=== PATIENT | male | born 1950 | race Hispanic/Latino ===

== ENCOUNTER → 2017-03-14 | Outpatient (CLI) | payer MEDICARE | END | disposition home or self-care (01) | LOC: RAH 10:00 | PROVIDERS: ATTEND Nurse Practitioner Family | DX: H91.90 Unspecified hearing loss, unspecified ear (principal) | CPT/HCPCS: 70450 ==

== ENCOUNTER → 2017-10-24 | Outpatient (CLI) | payer MEDICARE ==
[~2017-10-24] VITALS: Ht 177.8 cm; Wt 113.4 kg
[~2017-10-24] MED LIST: REGADENOSON 0.4 MG/5 ML PF SYG IVP SCH
== END | disposition home or self-care (01) ==
LOC: SHCH 07:43
PROVIDERS: ATTEND Internal Medicine Cardiovascular Disease
DX: I25.10 Atherosclerotic heart disease of native coronary artery without angina pectoris (principal); R06.00 Dyspnea, unspecified
CPT/HCPCS: 78452; 93017; 96374; A9500 ×2; J2785

== ENCOUNTER 2021-11-02 10:57 | Emergency (ER) | payer MEDICARE ==
[~2021-11-02 10:57] MED LIST changes: +AMOX1TAB16 PO; +MECL-160 PO; +ONDA4TAB10 PO; -REGADENOSON 0.4 MG/5 ML PF SYG IVP SCH
[2021-11-02] MEDS ORDERED: 0.9% NACL 500ML IV.SOLN 500 ML IV ONE (11:30)
[2021-11-02] MEDS ORDERED: ORPHENADRINE CITRATE 30 MG/ML ML IVP ONE (11:30)
[2021-11-02] MEDS ORDERED: KETOROLAC 15MG/ML VIAL (15MG/ML) IV ONE (11:30)
[2021-11-02] MEDS ORDERED: ACET-66 PO (12:46)
[2021-11-02] MEDS ORDERED: TRAM50TA4 PO (12:46)
[2021-11-02 13:06] VITALS: BP 152/78
== END 2021-11-02 13:19 | disposition home or self-care (01) ==
LOC: EDH 10:57
DX: M54.50 Low back pain, unspecified (principal); E11.9 Type 2 diabetes mellitus without complications; I10 Essential (primary) hypertension; Z79.899 Other long term (current) drug therapy; Z98.890 Other specified postprocedural states
CPT/HCPCS: 99284; 96374; 72131; 96375; J7040; J1885; J2360

== ENCOUNTER 2022-08-29 13:56 | Emergency (ER) | payer MEDICARE ==
[~2022-08-29] VITALS: Ht 177.8 cm; Wt 113.4 kg
[~2022-08-29 13:56] MED LIST changes: +ACET-66 PO; +TRAM50TA4 PO
[2022-08-29 14:07] VITALS: BP 146/86; PULSE 84; RESP 16
[2022-08-29 14:25] LABS: BASOPHILS # (AUTO) 0.07 K/uL (0.00-0.20); BASOPHILS % (AUTO) 0.7 % (0.0-5.0); EOSINOPHILS # (AUTO) 0.33 K/uL (0.00-0.70); EOSINOPHILS % (AUTO) 3.5 % (0.0-8.0); IMMATURE GRANULOCYTE ABSOLUTE 0.03 K/uL (0-1); LYMPHOCYTES # (AUTO) 1.9 K/uL (1.0-4.8); LYMPHOCYTES % (AUTO) 20.3 % (21.0-51.0); MEAN CORPUSCULAR HEMOGLOBIN 26.8 pg (27.0-33.0); MEAN CORPUSCULAR VOLUME 83.9 fL (79-99); MONOCYTES # (AUTO) 0.6 K/uL (0.1-1.0); MONOCYTES % (AUTO) 6.7 % (3.0-13.0); NEUTROPHILS # (AUTO) 6.4 K/uL (1.8-7.7); NEUTROPHILS % (AUTO) 68.5 % (40.0-77.0); PLATELET COUNT (AUTO) 283 K/uL (130-400); RED BLOOD CELL COUNT(AUTO) 5.48 MIL/uL (4.50-6.20); RED CELL DISTRIBUTION WIDTH 13.2 % (11.0-15.5); WHITE BLOOD COUNT (AUTO) 9.4 K/uL (4.8-10.8)
[2022-08-29 14:37] LABS: CREATININE 1.2 mg/dL (0.5-1.5); POTASSIUM 4.3 mmol/L (3.5-5.1)
[2022-08-29 14:41] LABS: ALBUMIN 3.7 g/dL (3.5-5.0); BILIRUBIN,TOTAL 0.3 mg/dL (0.2-1.0); TOTAL PROTEIN, SERUM 7.6 g/dL (6.0-8.3)
[2022-08-29] MEDS ORDERED: 0.9%NACL 1000ML 1,000 ML IV ONE (15:00)
[2022-08-29 16:13] LABS: ADD UA MICROSCOPIC YES; APPEARANCE,URINE CLEAR (CLEAR); BILIRUBIN,URINE NEGATIVE (NEGATIVE); COLOR,URINE LIGHT-YELLOW (YELLOW); GLUCOSE, URINE (UA) >=1000 mg/dL (NEGATIVE); KETONES,URINE NEGATIVE (NEGATIVE); LEUKOCYTE ESTERASE ,URINE 250 Leu/uL (NEGATIVE); NITRATE,URINE NEGATIVE (NEGATIVE); OCCULT BLOOD,URINE NEGATIVE (NEGATIVE); PROTEIN,URINE NEGATIVE (NEGATIVE); UROBILINOGEN,URINE 0.2 mg/dL (0.2-1.0)
[2022-08-29 16:24] LABS: BACTERIA,URINE RARE /HPF (None Seen); MUCUS,URINE RARE LPF (None Seen); NON-SQUAMOUS EPITHELIAL CELL <1 /HPF (0-2); OTHER CASTS, URINE 1 /LPF (None Seen); SQUAMOUS EPITHELIAL CELL,UR RARE /HPF (0-2); UNCLASSIFIED CRYSTAL 1 /HPF (None Seen); WBC,URINE 26-50 /HPF (0-1); YEAST,URINE BUDDING MOD /HPF (None Seen)
[2022-08-29] MEDS ORDERED: SULF1TAB42 PO (16:37)
[2022-08-29] MEDS ORDERED: CEFTRIAXONE 1G VIAL IV ONE (17:00)
== END 2022-08-29 18:31 | disposition home or self-care (01) ==
LOC: EDH 13:56
DX: N39.0 Urinary tract infection, site not specified (principal); I12.9 Hypertensive chronic kidney disease with stage 1 through stage 4 chronic kidney disease, or unspecified chronic kidney disease; E11.22 Type 2 diabetes mellitus with diabetic chronic kidney disease; N18.9 Chronic kidney disease, unspecified; E78.00 Pure hypercholesterolemia, unspecified
CPT/HCPCS: 99284; 96374; 96361; 82550; 84484; 80053; 85025; 87088; 81001; 36415; 93005; J7030; J0696

== ENCOUNTER 2024-07-01 20:33 | Emergency (ER) | payer MEDICARE ==
[~2024-07-01] VITALS: Ht 177.8 cm; Wt 114.3 kg
[~2024-07-01 20:33] MED LIST changes: -MECL-160 PO; +MECL-302 PO; +ONDA-243 PO; -ONDA4TAB10 PO; +SULF1TAB42 PO
--- NOTE | 2024-07-01 20:45 | ERN ---
General Chief Complaint: Back Pain-No Injury Stated Complaint: UPPER BACK PAIN Time Seen by MD: 20:37 Source: patient History of Present Illness Initial Comments Patient is a 73-year-old male coming in with upper back pain. Patient states it has upper back pain began getting worse. He does state that along with the upper back pain he gets very dizzy. Allergies: Coded Allergies: No Known Drug Allergies (Verified Allergy, 02/05/13) Home Meds Active Scripts Sulfamethoxazole/Trimethoprim (Bactrim Ds Tablet) 1 Each Tablet, 1 TAB PO BID for 7 Days, #14 TAB 0 Refills Prov:SYLVESTER CHANG NP 08/29/22 Acetaminophen (Tylenol) 500 Mg Tab, 500 MG PO Q4PRN PRN for PAIN, #30 TAB Prov:WOO WASHINGTONP 11/02/21 Tramadol Hcl (Tramadol HCl) 50 Mg Tablet, 50 MG PO TID, #15 TAB Prov:WOO WASHINGTONP 11/02/21 Amoxicillin/Potassium Clav (Amox Tr-K Clv 875-125 mg Tab) 1 Each Tablet, 1 EACH PO BID for 10 Days, #20 TAB 0 Refills Prov:VANI JACKSON MD 04/29/21 Ondansetron (Ondansetron Odt) 4 Mg Tab.rapdis, 4 MG PO Q6HPRN, #20 TAB 0 Refills Prov:VANI JACKSON MD 04/29/21 Meclizine HCl (Meclizine HCl) 25 Mg Tablet, 25 MG PO Q6HPRN, #20 TAB 0 Refills Prov:VANI JACKSON MD 04/29/21 Past Medical History Past Medical History: Diabetes-Type II, High Cholesterol, Hypertension, Hyperthyroid Medical History Other: Vertigo, Lower back pain Past Surgical History: Unknown Surgical History Other: Back surgery Social History Social History: Negative ROS Dictation CONSTITUTIONAL: No chills, no fever, no weakness, no diaphoresis, no malaise. HEAD/FACE: No signs of trauma. EENT: No eye pain, no blurred vision, no tearing, no double vision, no ear pain, no ear discharge, no nose pain, no nasal congestion, no throat pain, no throat swelling, no mouth pain. RESPIRATORY: No cough, no orthopnea, no SOB, no stridor, no wheezing. CARDIOVASCULAR: No chest pain, no edema, no palpitations, no syncope. GASTROINTESTINAL/ABDOMINAL: No abdominal pain, no constipation, no diarrhea, no nausea, no vomiting. GENITOURINARY: No abnormal discharge, no dysuria, no frequent urination, no hematuria. No complaints of pain in the genitals. MUSCULOSKELETAL: No back pain, no gout, no joint pain, no joint swelling, no muscle pain, no muscle stiffness, no neck pain. INTEGUMENTARY: No change in color, no change in hair/nails, no dryness, no lesion, no lumps, no rash. NEUROLOGICAL/PSYCH: No anxiety, not depressed, no emotional problem, no headache, no numbness, no pre-existing deficit, no history of seizures, no tremors, no weakness. HEMATOLOGIC/LYMPHATIC: Not anemic, no history of blood clots, no apparent bleeding, no bruising, glands not swollen. All Systems Negative, Except as Noted. Physical Exam Physical Exam Dictation VITAL SIGNS: Reviewed. GENERAL APPEARANCE: Alert, oriented x3, no acute distress, obese. HEAD AND FACE: Non-traumatic. EYES: PERRL, pink conjunctivas, eyelid no trauma, anterior chamber clear. EARS: Pinnas intact and no signs of trauma or erythema. Ear canals clear and no discharge. TMs no erythema. NOSE: No discharge, no bleeding. OROPHARYNX: Mouth normal, teeth no caries, tongue pink. Pharynx clear, no erythema. Tonsils no exudates, no abscesses noted. Mucous membrane moist. NECK: Supple, non-tender, no thyromegaly, no masses, no JVD, no bruits. BREAST: Deferred. CHEST: No tenderness, no crepitus, no paradoxical movement, no retractions. LUNGS: Clear, well-ventilated, symmetric, no rales, no wheezing, no rhonchi, no stridor, good breath sounds bilaterally. HEART: Regular rate, regular rhythm, no murmur, no gallops. VASCULAR: No peripheral edema. ABDOMEN: Soft, positive bowel sounds, nondistended, no guarding, nontender, no rebound, no masses no hepatomegaly, no splenomegaly, no Yeung's sign, no hernias. RECTAL: Deferred. GENITAL: Deferred. NEUROLOGICAL: Normal speech, gross motor function intact, gross sensory function intact. MUSCULOSKELETAL: Neck nontender, full range of motion, back nontender, full range of motion. EXTREMITIES: Nontender, full range of motion. SKIN: Color pink, dry, no turgor, no rash, no lacerations, no abrasions, no contusions. LYMPHATICS: Deferred. Results Laboratory and Microbiology Lab and Micro Result Laboratory Tests Test 07/01/24 20:46 07/01/24 20:58 White Blood Count 10.8 K/uL (4.8-10.8) Red Blood Count 5.00 MIL/uL (4.50-6.20) Hemoglobin 13.9 g/dL (14.0-18.0) L Hematocrit 41.6 % (42-54) L Mean Corpuscular Volume 83.2 fL (79-99) Mean Corpuscular Hemoglobin 27.8 pg (27.0-33.0) Mean Corpuscular Hemoglobin Concent 33.4 g/dL (32.0-36.0) Red Cell Distribution Width 13.0 % (11.0-15.5) Platelet Count 282 K/uL (130-400) Mean Platelet Volume 9.4 fL (7.5-10.5) Immature Granulocyte % (Auto) 0.5 % (0-1) Neutrophils (%) (Auto) 62.5 % (40.0-77.0) Lymphocytes (%) (Auto) 27.3 % (21.0-51.0) Monocytes (%) (Auto) 6.4 % (3.0-13.0) Eosinophils (%) (Auto) 2.7 % (0.0-8.0) Basophils (%) (Auto) 0.6 % (0.0-5.0) Neutrophils # (Auto) 6.8 K/uL (1.8-7.7) Lymphocytes # (Auto) 3.0 K/uL (1.0-4.8) Monocytes # (Auto) 0.7 K/uL (0.1-1.0) Eosinophils # (Auto) 0.29 K/uL (0.00-0.70) Basophils # (Auto) 0.07 K/uL (0.00-0.20) Absolute Immature Granulocyte (auto 0.05 K/uL (0-1) Nucleated Red Blood Cells 0.0 % (0.0-0.19) Sodium Level 139 mmol/L (136-145) Potassium Level 4.2 mmol/L (3.5-5.1) Chloride Level 102 mmol/L (101-111) Carbon Dioxide Level 27 mmol/L (21-32) Blood Urea Nitrogen 21 mg/dL (7-18) H Creatinine 1.3 mg/dL (0.5-1.3) Glomerular Filtration Rate Calc 58 mL/min (>90) Random Glucose 198 mg/dL (70-105) H Total Calcium 9.0 mg/dL (8.5-10.1) Magnesium Level 1.70 mg/dL (1.80-2.40) L Total Creatine Kinase 55 U/L (21-232) # Troponin I High Sensitivity 4 ng/L (4-75) B-Type Natriuretic Peptide 38 pg/mL (0-100) Urine Color COLORLESS (YELLOW) Urine Appearance CLEAR (CLEAR) Urine pH 5.5 (5.0-8.0) Urine Specific Meredith 1.006 (1.001-1.031) Urine Protein NEGATIVE mg/dL (NEGATIVE) Urine Glucose (UA) NEGATIVE mg/dL (NEGATIVE) Urine Ketones NEGATIVE mg/dL (NEGATIVE) Urine Occult Blood NEGATIVE (NEGATIVE) Urine Nitrate NEGATIVE (NEGATIVE) Urine Bilirubin NEGATIVE mg/dL (NEGATIVE) Urine Urobilinogen 0.2 mg/dL (0.2-1.0) Urine Leukocyte Esterase NEGATIVE [place]/uL Urine RBC None /HPF (0-1) Urine WBC 0-1 /HPF (0-1) Urine Squamous Epithelial Cells RARE /HPF (0-2) Urine Bacteria RARE /HPF (None Seen) Urine Hyaline Casts 0-1 /LPF (0-1 /LPF) Labs Reviewed?: Yes EKG/XRAY/US/CT/MRI EKG Comment 07/26/2024 time 8:58 p.m. Ventricular rate 85 Sinus rhythm [place] [address] wave elevation or depression X-RAY Comment [address] [address] IMAGING REPORT Signed PATIENT: JIA WELDON JR MR#: [id number] : 1950 SEX: M AGE: 73 LOCATION: [facility] ORDER 38 STATUS: REG ER [facility] REPORT#: [id number] SERVICE 37 REASON: cp ORDERING PHYSICIAN: LIU VELAZQUEZ MD PROCEDURE: CXR1VW - CHEST 1VW CHEST 1VW CLINICAL HISTORY: cp COMPARISON: CT scan the same day TECHNIQUE: Single view of the chest was obtained. FINDINGS: Lungs are clear. The cardiac size and mediastinum are unremarkable. There is change of prior cervical spinal fusion. IMPRESSION: No acute cardiopulmonary process identified. DICTATED BY: JACK MATHEW DO DATE: 07/01/242124 ELECTRONICALLY SIGNED BY: JACK MATHEW DO DATE: 07/01/242130 CT Scan Comment [place] [address] [address] IMAGING REPORT Signed PATIENT: JIA WELDON JR MR#: [id number] : 1950 SEX: M AGE: 73 LOCATION: [facility] ORDER 38 STATUS: REG ER REPORT#: [id number] SERVICE 37 REASON: back pain vertigo ORDERING PHYSICIAN: LIU VELAZQUEZ MD PROCEDURE: CHEST WO - CT CHEST W/O CONTRAST CT CHEST W/O CONTRAST CLINICAL HISTORY: back pain vertigo COMPARISON: None TECHNIQUE: Multiple sequential axial images of the chest were obtained from the thoracic inlet through upper abdomen. CT was performed with one or more of the following dose reduction techniques: automated exposure control, adjustment of the mA and/or kV according to patient size, or use of iterative reconstruction technique FINDINGS: There is mild atelectasis in left lung base. Note is made of advanced calcified coronary artery disease. The mediastinum is free of pathologic size lymph nodes. The visualized intra-abdominal viscera is unremarkable. The bony structures demonstrate mild diffuse degenerative changes of the spine. IMPRESSION: Advanced calcified coronary disease. Mild atelectasis in left lower lobe DICTATED BY: JACK MATHEW DO DATE: 07/01/242120 ELECTRONICALLY SIGNED BY: JACK MATHEW DO DATE: 07/01/242126 [facility] MDM: Differential diagnosis: Back strain, NSTEMI, dissection Rationale: Tests considered and ordered secondary to shared decision making include: Previous outside records reviewed: Old ER visits. Risk of complication and/or morbidity or mortality of patient management: None Patient is a 73-year-old male coming in to be evaluated for back pain. Due to the multiple coming in his bed bees in the presentation of the pain which was not attributed to anything traumatic a CT was performed which did not disclose acute findings. Patient will be discharged in stable condition with a diagnosis of muscle strain. States that he does have a history of chronic vertigo in his had it all his life. He also states that he has had multiple MRIs checked which has been negative. I did advised him appropriate follow up with the ENT and neurologist as indicated in the past. Patient was hydrated better. He will be discharged in stable condition. ED Course Orders Procedure Category Date Status Time Cbc With Differential LAB 07/01/24 Complete 20:38 B-Type Natriuretic LAB 07/01/24 Complete Peptide 20:38 Chest 1vw RAD 07/01/24 Resulted 20:38 12 Lead Ekg Tracing- EKG 07/01/24 Logged Technical 20:38 Magnesium LAB 07/01/24 Complete 20:38 Creatine Kinase, Total LAB 07/01/24 Complete 20:38 Troponin I High LAB 07/01/24 Complete Sensitivity 20:38 Urinalysis Profile LAB 07/01/24 Complete 20:38 Basic Metabolic Panel LAB 07/01/24 Complete 20:38 Ct Chest W/O Contrast CT 07/01/24 Resulted 20:38 Orphenadrine Citrate PHA 07/01/24 Complete (Norflex) 21:00 0.9%Nacl 1000ml (Ns PHA 07/01/24 Complete 1000ml) 22:00 Current Medications Medications (Trade) Dose Ordered Sig/Geraldo Route PRN Reason Start Time Stop Time Status Last Admin Dose Admin Orphenadrine Citrate (Norflex) 60 mg ONCE ONCE IM 07/01/24 21:00 07/01/24 21:01 DC 07/01/24 20:51 Sodium Chloride 1,000 ml @ 0 mls/hr ONCE ONCE IV 07/01/24 22:00 07/01/24 22:01 DC 07/01/24 21:58 Vital Signs Date Time Temp Pulse Resp B/P (MAP) Pulse Ox O2 Delivery O2 Flow Rate FiO2 07/01/24 20:35 98.1 81 16 154/87 97 Room Air* 0 21 DX & DISP Disposition: Discharge Departure Impression: Primary Impression: Muscle strain Additional Impression: Volume depletion Condition: Stable Additional Instructions: FOLLOW-UP WITH PRIMARY CARE PROVIDER IN 1 TO 2 DAYS. TAKE MEDICATIONS DIRECTED HERE IN THE EMERGENCY ROOM. OKAY TO CONTINUE HOME MEDICATIONS UNLESS OTHERWISE DISCUSSED DURING YOUR VISIT IN THE EMERGENCY ROOM TODAY. RETURN TO YOUR NEAREST EMERGENCY ROOM IF SYMPTOMS WORSEN OR IF THERE IS NO IMPROVEMENT. CALL 911 IF YOU NEED IMMEDIATE ASSISTANCE. TAKE TYLENOL [id number] NEEDED AND IF NO CONTRAINDICATIONS ARE PRESENT. INCREASE ORAL HYDRATION. A WOUND CULTURE OR URINE CULTURE WAS ORDERED HERE IN THE EMERGENCY ROOM DEPARTMENT PLEASE FOLLOW-UP WITH PRIMARY CARE PROVIDER AND ADVISE THEM TO GET REPEAT PORTS FROM OUR FACILITY. IF YOU HAD ANY [place] WRAP/SPLINTS THAT WERE APPLIED HERE, PLEASE DO NOT REMOVE THEM UNTIL YOU SEE YOUR PRIMARY CARE OR SPECIALTY. Referrals: Referrals: MINAL JORDAN (PCP) JOYCE MARTINEZ MD, JAMES T MD Time of Disposition: 22:06 LIU VELAZQUEZ MD July 01, 2024 20:45
[2024-07-01 20:51] LABS: BASOPHILS # (AUTO) 0.07 K/uL (0.00-0.20); BASOPHILS % (AUTO) 0.6 % (0.0-5.0); EOSINOPHILS # (AUTO) 0.29 K/uL (0.00-0.70); EOSINOPHILS % (AUTO) 2.7 % (0.0-8.0); HEMATOCRIT 41.6 % (42-54); IMMATURE GRANULOCYTE ABSOLUTE 0.05 K/uL (0-1); LYMPHOCYTES % (AUTO) 27.3 % (21.0-51.0); MEAN CORPUSCULAR HEMOGLOBIN 27.8 pg (27.0-33.0); MEAN CORPUSCULAR HGB CONC 33.4 g/dL (32.0-36.0); MEAN CORPUSCULAR VOLUME 83.2 fL (79-99); MONOCYTES # (AUTO) 0.7 K/uL (0.1-1.0); MONOCYTES % (AUTO) 6.4 % (3.0-13.0); NEUTROPHILS # (AUTO) 6.8 K/uL (1.8-7.7); NEUTROPHILS % (AUTO) 62.5 % (40.0-77.0); PLATELET COUNT (AUTO) 282 K/uL (130-400); WHITE BLOOD COUNT (AUTO) 10.8 K/uL (4.8-10.8)
[2024-07-01] MEDS: ORPHENADRINE 60MG/2ML IM ONE (20:51)
[2024-07-01 20:59] LABS: CREATININE 1.3 mg/dL (0.5-1.3); POTASSIUM 4.2 mmol/L (3.5-5.1)
[2024-07-01 21:02] LABS: APPEARANCE,URINE CLEAR (CLEAR); BILIRUBIN,URINE NEGATIVE (NEGATIVE); COLOR,URINE COLORLESS (YELLOW); GLUCOSE, URINE (UA) NEGATIVE (NEGATIVE); KETONES,URINE NEGATIVE (NEGATIVE); LEUKOCYTE ESTERASE ,URINE NEGATIVE Leu/uL (NEGATIVE); NITRATE,URINE NEGATIVE (NEGATIVE); OCCULT BLOOD,URINE NEGATIVE (NEGATIVE); PH,URINE 5.5 (5.0-8.0); PROTEIN,URINE NEGATIVE (NEGATIVE); UROBILINOGEN,URINE 0.2 mg/dL (0.2-1.0)
[2024-07-01 21:03] LABS: ADD UA MICROSCOPIC YES
[2024-07-01 21:04] LABS: MAGNESIUM 1.7 mg/dL (1.80-2.40)
[2024-07-01 21:04] LABS: BACTERIA,URINE RARE /HPF (None Seen); HYALINE CASTS, URINE 0-1 /LPF (0-1 /LPF); SQUAMOUS EPITHELIAL CELL,UR RARE /HPF (0-2); WBC,URINE 0-1 /HPF (0-1)
[2024-07-01 21:20] LABS: B-TYPE NATRIURETIC PEPTIDE 38 pg/mL (0-100)
--- NOTE | 2024-07-01 21:27 | HMCIMG ---
CT CHEST W/O CONTRAST CLINICAL HISTORY: back pain vertigo COMPARISON: None TECHNIQUE: Multiple sequential axial images of the chest were obtained from the thoracic inlet through upper abdomen. CT was performed with one or more of the following dose reduction techniques: automated exposure control, adjustment of the mA and/or kV according to patient size, or use of iterative reconstruction technique FINDINGS: There is mild atelectasis in left lung base. Note is made of advanced calcified coronary artery disease. The mediastinum is free of pathologic size lymph nodes. The visualized intra-abdominal viscera is unremarkable. The bony structures demonstrate mild diffuse degenerative changes of the spine. IMPRESSION: Advanced calcified coronary disease. Mild atelectasis in left lower lobe
--- NOTE | 2024-07-01 21:31 | HMCIMG ---
CHEST 1VW CLINICAL HISTORY: cp COMPARISON: CT scan the same day TECHNIQUE: Single view of the chest was obtained. FINDINGS: Lungs are clear. The cardiac size and mediastinum are unremarkable. There is change of prior cervical spinal fusion. IMPRESSION: No acute cardiopulmonary process identified.
[2024-07-01] MEDS: 0.9%NACL 1000ML 1,000 ML IV ONE (21:58)
[2024-07-01 23:27] VITALS: BP 142/84; PULSE 84; RESP 16; TEMP 98; O2SAT 98
--- NOTE | 2024-07-02 06:32 | EKG ---
[facility] Test Date: 2024-07-01 Test Time: 20:58:52 Pat Name: JIA WELDON Department: [facility] Room: Gender: M Gum Cook: [id number] : 1950 Requested By: LIU VELAZQUEZ Order Number: [id number] Reading MD: Vasu Drummond Measurements Intervals [place] Rate: 85 P: 37 [place]: 162 QRS: -21 QRSD: 104 T: 47 QT: 380 QTc: 453 Interpretive Statements Sinus rhythm Compared to ECG 08/29/2022 14:11:15 Myocardial infarct finding no longer present T-wave abnormality no longer present Electronically Signed On 07-02-2024 17:33:07 CDT by Vasu Drummond Please click the below link to view image of tracing.
== END 2024-07-01 23:29 | disposition home or self-care (01) ==
LOC: EDH 20:33
DX: S29.012A Strain of muscle and tendon of back wall of thorax, initial encounter (principal); E86.9 Volume depletion, unspecified; E11.9 Type 2 diabetes mellitus without complications; E78.00 Pure hypercholesterolemia, unspecified; I10 Essential (primary) hypertension; Z98.890 Other specified postprocedural states; X58.XXXA Exposure to other specified factors, initial encounter; Y93.89 Activity, other specified; Y92.89 Other specified places as the place of occurrence of the external cause; Y99.8 Other external cause status
CPT/HCPCS: 99285; 71250; 71045; 82550; 83735; 84484; 80048; 83880; 85025; 81001; 36415; 96372; 93005; J7030; J2360